=== PATIENT | male | born 2000 | race Two or more races ===

== ENCOUNTER 2024-07-16 15:09 | Emergency (ER) | payer OTHER, BC, SELFPAY ==
[2024-07-16 15:20] VITALS: BP 122/73; PULSE 93; RESP 16; TEMP 36.4; O2SAT 96; BMI 21.9
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
== END 2024-07-16 19:14 | disposition home or self-care (01) ==
PROVIDERS: Emergency Provider Emergency Medicine; PCP Family Medicine
DX: R51.9 Headache, unspecified (principal); M54.2 Cervicalgia; M54.9 Dorsalgia, unspecified
CPT/HCPCS: 70450; 71046; 72125; 99284

== ENCOUNTER → 2024-10-18 | Outpatient (BNVA) | payer OTHER, SELFPAY | END | disposition home or self-care (01) | PROVIDERS: PCP Family Medicine; Referring Provider Family Medicine; Visit Provider Student in an Organized Health Care Education/Training Program | DX: N43.3 Hydrocele, unspecified (principal) | CPT/HCPCS: 99212; G0463 ==

== ENCOUNTER → 2024-10-18 | Outpatient (CLI) | payer OTHER, BC, SELFPAY ==
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
== END | disposition home or self-care (01) ==
LOC: CDIM 12:19
PROVIDERS: PCP Family Medicine; Referring Provider Internal Medicine; Visit Provider Internal Medicine
DX: N50.89 Other specified disorders of the male genital organs (principal); Q55.22 Retractile testis
CPT/HCPCS: 76870